=== PATIENT | female | born 1975 | race Caucasian/White ===

== ENCOUNTER 2021-07-28 07:01 | Emergency (ER) | payer MEDICAID ==
[~2021-07-28] VITALS: Ht 152.4 cm; Wt 68.0 kg
[2021-07-28] MEDS ORDERED: SUBOXONE 8 MG-1 EAC1 SL (07:14)
--- OUTSIDE RECORDS SUMMARY | 2021-07-28 08:54 | XMS ---
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 Guidelines Source: [facility] Guidelines Date: 11/09/2020 Care Recommendation: \T\nbsp; Emergency Department Narcotic and/or Benzodiazepine Care Plan \T\nbsp; Goals: 1. Proper utilization of the ED; 2. Appropriate connection with outpatient providers; 3. Prevent acquisition of multiple prescriptions from multiple providers. Plan:\T\nbsp;\T\nbsp;\T\nbsp;\T\nbsp;\T\nbsp;\T\nbsp;\T\nbsp; \T\nbsp;\T\nbsp;\T\nbsp;\T\nbsp;\T\nbsp;\T\nbsp;\T\nbsp;\T\nbsp;\T\nbsp;\T\nbsp;\ T\nbsp;\T\nbsp;\T\nbsp;\T\nbsp;\T\nbsp;\T\nbsp;\T\nbsp;\T\nbsp;\T\nbsp;\T\nbsp;\ T\nbsp;\T\nbsp;\T\nbsp;\T\nbsp;\T\nbsp;\T\nbsp;\T\nbsp;\T\nbsp;\T\nbsp;\T\nbsp;\ T\nbsp;\T\nbsp;\T\nbsp;\T\nbsp;\T\nbsp;\T\nbsp;\T\nbsp; 1. Do not administer opiates or benzodiazepines in the ED for chronic conditions or for non-emergencies, only for obvious trauma or severe medical issues. 2. No discharge narcotic or benzodiazepine prescriptions except (1) specific OK received by direct contact with the patient\T\#39;s PCP/specialist or (2) extenuating acute circumstance. 3. Any prescription lost, stolen, or destroyed should not be replaced. 4. ED Providers should immediately check the [facility] Prescription Review database for prescriptions filled. 5. Encourage appropriate follow up with outpatient providers. 6. Hold patient accountable for establishing and utilizing primary care. [place] VISIT COUNT (12 MO.) [address] [place] [id number] DAGOBERTO Bailey TOTAL 4 NOTE: Visits indicate total known visits. ED/UCC VISIT TRACKING (12 MO.) 07/28/2021 07:02 [facility]ERT[facility] [place] TYPE: Emergency COMPLAINT: - POSS BROKEN LEG 03/17/2021 17:00 [facility] TYPE: Emergency COMPLAINT: - chest pains 11/25/2020 16:26 [facility] TYPE: Emergency COMPLAINT: - Mental Health Clearance 11/09/2020 11:33 [facility] TYPE: Emergency COMPLAINT: - RIB PAIN INPATIENT VISIT TRACKING (12 MO.) No inpatient visits to display in this time frame [id number]
[2021-07-29] MEDS ORDERED: DICLOFENAC SODI75 MG PO (23:53)
== END 2021-07-28 08:19 | disposition home or self-care (01) ==
LOC: ED 07:01
DX: S90.424A Blister (nonthermal), right lesser toe(s), initial encounter (principal); S93.401A Sprain of unspecified ligament of right ankle, initial encounter; X58.XXXA Exposure to other specified factors, initial encounter; Z88.6 Allergy status to analgesic agent; Z88.8 Allergy status to other drugs, medicaments and biological substances; Z79.899 Other long term (current) drug therapy
CPT/HCPCS: 73610; 99283-25

== ENCOUNTER 2021-07-30 23:21 | Emergency (ER) | payer MEDICAID ==
[~2021-07-30] VITALS: Ht 152.4 cm; Wt 68.0 kg
[~2021-07-30 23:21] MED LIST: DICLOFENAC SODI75 MG PO; SUBOXONE 8 MG-1 EAC1 SL
[2021-07-31] MEDS ORDERED: DICLOFENAC SODI75 MG PO (01:15)
--- OUTSIDE RECORDS SUMMARY | 2021-07-31 01:52 | XMS ---
PreManage Notification: AGUSTIN GRAHAM Security Manager User Interface Events No recent Security Events currently on file CRITERIA MET - [facility] - Has Care Guidelines - [facility] - 2 Visits in 30 Days CARE PROVIDERS There are no care providers on record at this time. Guidelines Source: [facility] Guidelines Date: 11/09/2020 Care Recommendation: \T\nbsp; Emergency [...] 4. ED Providers should immediately check the [facility] Prescription Review database for prescriptions filled. 5. Encourage appropriate follow up with outpatient providers. 6. Hold patient accountable for establishing and utilizing primary care. Arpita VISIT COUNT (12 MO.) 3 [facility] 1 [facility] 3 DAGOBERTO Bailey TOTAL 7 NOTE: Visits indicate total known visits. ED/UCC VISIT TRACKING (12 MO.) 07/30/2021 23:21 [facility] [place] TYPE: Emergency COMPLAINT: - R ANKLE PAIN 07/29/2021 23:11 D[facility] TYPE: Emergency COMPLAINT: - RT ANKLE PAIN/NON INJ [facility] DIAGNOSES: - poss toe infection 07/28/2021 07:02 DAGOBERTO [facility] TYPE: Emergency COMPLAINT: - POSS BROKEN LEG 03/17/2021 17:00 [facility] TYPE: Emergency COMPLAINT: - chest pains 11/25/2020 16:26 [facility] TYPE: Emergency COMPLAINT: - Mental Health Clearance 11/09/2020 11:33 [facility] TYPE: Emergency COMPLAINT: - RIB PAIN INPATIENT VISIT TRACKING (12 MO.) No inpatient visits to display in this time frame [id number]
== END 2021-07-31 01:36 | disposition home or self-care (01) ==
LOC: ED 23:21
DX: S90.424A Blister (nonthermal), right lesser toe(s), initial encounter (principal); M25.471 Effusion, right ankle; Z88.6 Allergy status to analgesic agent; Z88.8 Allergy status to other drugs, medicaments and biological substances; Z79.899 Other long term (current) drug therapy
CPT/HCPCS: 99283